=== PATIENT | female | born 1980 | race Caucasian/White ===

== ENCOUNTER 2019-03-23 21:22 | Inpatient (IN) | payer OTHER ==
[~2019-03-23] VITALS: Ht 162.6 cm; Wt 123.3 kg
--- NOTE | ~2019-03-23 | HC ---
[facility] [place] [address] CONSULTATION Name: IRASEMA POON Room #: 210-P [facility] IN M.R.#: [id number] Admission: 03/23/19 Attend Phys: Bernardo Poon MD Discharge: Date of : 76 Report #: [id number] THIS REPORT FOR: //name// CC: MICHELE physician/PCP Bernardo Poon DATE OF SERVICE: 03/24/2019 HISTORY OF PRESENT ILLNESS: This is a 38-year-old female patient for whom a consultation was called this morning to evaluate for headache. The patient gives a history that she has been diagnosed with headache a few years ago. She described it as a migraine headache. She gets about 1 headache every 6 weeks. She does have some photophobia with it. She does not know what brings it on. She was recently started on Topamax. She believes it was 2 weeks ago. Now, she is having severe headache, photophobia, vision disturbances. She is having some pain behind both eyes. She said these symptoms are different than she usually gets. She has some menstrual abnormality for which she takes hormones, but she thinks it is progesterone, but she is not certain. REVIEW OF SYSTEMS: Indicate history of hypertension, arthritis, posttraumatic stress disorder according to the patient. Rest of the review of system was mostly unremarkable. PAST MEDICAL HISTORY: Positive for migraine. FAMILY HISTORY: Negative for any early age stroke. SOCIAL HISTORY: The patient works as a dispatcher. PHYSICAL EXAMINATION: Indicates she is alert. She is responsive. She can follow simple and complex command. She is pretty photophobic. Cranial nerve examination is difficult to do. Neuromuscular examinations appear symmetrical. There is no meningeal sign. There is no carotid bruit. Cardiac and respiratory examinations appear unremarkable. Her blood pressure is 134/81, respirations 18, pulse is 75, temperature is 97.7. LABORATORY DATA: White count is normal. She did have a CT scan of the head and that does not appear to be showing any definite abnormality, but they have been questioning one area and because of that, we will do an MRI in this patient. IMPRESSION: This patient probably has status migrainous, but few things need to be addressed. Firstly, we need to evaluate a CT abnormality further by MRI. Even more importantly, we need to make sure she does not have any Topamax induced glaucoma. Since the character has changed, we will go ahead and do the MRI anyway. [address] [address] CONSULTATION Name: IRASEMA POON Room #: 210-P ADM IN M.R.#: [id number] Admission: 03/23/19 Attend Phys: Bernardo Poon MD Discharge: Date of : 76 Report #: [id number] I discussed the patient with admitting physician, Dr. Gilliland. I recommended Ophthalmology consult as soon as possible. He is going to arrange that with Ophthalmology clinic as soon as possible. I will go ahead and arrange an MRI. If glaucoma is excluded, the main treatment is going to be symptomatic by pain medication to break the cycle. I will hold her Topamax for the time being. It is noticed that she is also on gabapentin, which should have some beneficial effect for migraine headache. All of it was discussed with the patient and she is agreeable with this plan. By: [id number] Pedro Banuelos MD /nt
[2019-03-23 21:28] VITALS: BP 129/72
[2019-03-23] MEDS ORDERED: TOPAMAX 25 MG T25 MG PO (21:34)
[2019-03-23] MEDS ORDERED: FLEXERIL PO (21:34)
[2019-03-23] MEDS ORDERED: NEURONTIN300 MG PO (21:35)
[2019-03-23] MEDS ORDERED: ZYRTEC10 M4 PO (21:35)
[2019-03-23] MEDS ORDERED: HYDROCHLOROTHIA25 M2 PO (21:35)
[2019-03-23] MEDS ORDERED: LISINOPRIL PO (21:36)
[2019-03-23] MEDS ORDERED: PROPRANOLOL 8080 MG PO (21:37)
[2019-03-23] MEDS ORDERED: MELOXICAM15 MG PO (21:37)
[2019-03-23] MEDS ORDERED: PROVERA10 MG PO (21:37)
[2019-03-23] MEDS ORDERED: PROAIR HFA8.5 GM INH (21:38)
[2019-03-23] MEDS ORDERED: SUMATRIPTAN SUCCINAT PO (21:38)
[2019-03-23 23:26] VITALS: BP 133/94
[2019-03-24] VITALS (8 sets, daily range): BP systolic 113–143; BP diastolic 60–93
[2019-03-24 08:52] LABS: ALBUMIN 3.8 g/dL (3.4-5.0); CALCIUM 9.3 mg/dL (8.5-10.1); CREATININE 1.1 mg/dL (0.6-1.0); TOTAL BILIRUBIN 0.3 mg/dL (<0.1-1.0); TOTAL PROTEIN 7.3 g/dL (6.4-8.2)
[2019-03-24 09:11] LABS: HEMATOCRIT 41.4 % (37.0-47.0); HEMOGLOBIN 13.5 gm/dL (12.0-15.0); MCH 30.2 pg (26.0-34.0); MCHC 32.7 g/dL (28.0-37.0); MCV 92.4 fL (80.0-100.0); RBC 4.48 mil/uL (4.20-5.00); RDW 13.8 % (10.5-14.5); WBC 6.7 thou/uL (4.0-11.0)
[2019-03-24 09:23] LABS: URINE BILIRUBIN NEGATIVE (Negative); URINE BLOOD NEGATIVE (Negative); URINE CLARITY CLEAR; URINE COLOR YELLOW; URINE GLUCOSE-RANDOM* NEGATIVE (Negative); URINE KETONES NEGATIVE (Negative); URINE LEUKOCYTES-REFLEX TRACE (Negative); URINE NITRITE-REFLEX NEGATIVE (Negative); URINE PROTEIN (DIPSTICK) NEGATIVE (Negative); URINE UROBILINOGEN 0.2 E.U./dl (0.2-1.0)
[2019-03-25 02:31] LABS: GLYCOHEMOGLOBIN (HGB A1C) 5.8 % (4.8-5.6)
[2019-03-25 08:10] VITALS: BP 134/72
[2019-03-25 09:00] VITALS: BP 134/72
[2019-03-25 09:16] LABS: CHOLESTEROL 141 mg/dL (<200); HDL CHOLESTEROL 46 mg/dL (>40); LDL CHOLESTEROL 84 mg/dL (<100); TC:HDL 3.1 Ratio (Not establshd); TRIGLYCERIDE 59 mg/dL (<150); VLDL 12 mg/dL (<40)
--- NOTE | 2019-03-25 14:06 | 2DMMODE ---
[facility] [address] [place] [address] 2 D/M-MODE ECHOCARDIOGRAM Name: IRASEMA POON Room #: 455-P ADM IN M.R.#: [id number] Admission: 03/23/19 Attend Phys: Bernardo Poon MD Discharge: Date of : 76 Report #: [id number] THIS REPORT FOR: cc: MICHELE - Rocio family physician/PCP MICHELE - Rocio family physician/PCP Ez Peacock MD ~ THIS REPORT FOR: //name// APPROVED REPORT Study performed: 03/25/2019 13:28:02 EXAM: Comprehensive 2D, Doppler, and color-flow Echocardiogram Patient Location: Echo lab Room #: 455 Status: routine BSA: 2.23 HR: 74 bpm BP: 134/72 mmHg Rhythm: NSR Other Information Study Quality: Good Indications Migraine. Doctor requested bubble study. Hx: HTN. Echo Enhancing Agent Indication: Rule out Shunt Agent(s) / Amount(s) Used: Agitated Saline 6 cc 2D Dimensions RVDd: 31.36 mm IVSd: 8.56 (7-11mm) LVOT Diam: 19.62 (18-24mm) LVDd: 46.85 mm PWd: 9.77 (7-11mm) Ascending Ao: 26.96 (22-36mm) LVDs: 35.31 (25-40mm) Aortic Root: 27.40 mm Volumes Left Atrial Volume (Systole) Single Plane 4CH: 46.13 mL Single Plane 2CH: 48.17 mL LA ESV Index: 23.00 mL/m2 [facility] [address] [employer] [place] [address] 2 D/M-MODE ECHOCARDIOGRAM Name: IRASEMA POON Room #: 455-P [facility] IN .R.#: [id number] Admission: 03/23/19 Attend Phys: Bernardo Poon, Discharge: Date of : 76 Report #: [id number] Aortic Valve AoV Peak Naveen.: 1.44 m/s AO Peak Gr.: 8.35 mmHg LVOT Max P.04 mmHg LVOT Max V: 1.33 m/s PAULO Vmax: 2.78 cm2 Mitral Valve E/A Ratio: 1.6 MV Decel. Time: 167.28 ms MV E Max Naveen.: 1.09 m/s MV A Naveen.: 0.69 m/s MV PHT: 48.51 ms IVRT: 64.59 ms Pulmonary Valve PV Peak Naveen.: 1.02 m/s PV Peak Gr.: 4.15 mmHg Pulmonary Vein P Vein S: 0.74 m/s P Vein D: 0.39 m/s P Vein S/D Ratio: 1.90 Tricuspid Valve TR Peak Naveen.: 2.36 m/s RAP Estimate: 5.00 mmHg TR Peak Gr.: 22.25 mmHg PA Pressure: 27.00 mmHg Left Ventricle The left ventricle is normal size. There is normal LV segmental wall motion. There is normal left ventricular wall thickness. Left ventricular systolic function is normal. LVEF is 60%. The left ventricular diastolic function is normal. Right Ventricle The right ventricle is normal size. The right ventricular systolic function is normal. Atria The left atrium size is normal. No shunting by contrast bubble injection. The right atrium size is normal. Aortic Valve The aortic valve is normal in structure. No aortic regurgitation is present. There is no aortic valvular stenosis. [facility] [place] [address] 2 D/M-MODE ECHOCARDIOGRAM Name: IRASEMA POON Room #: 455-P [facility] IN M.R.#: [id number] Admission: 03/23/19 Attend Phys: Bernardo Poon, Discharge: Date of : 76 Report #: [id number] Mitral Valve The mitral valve is normal in structure. There is no mitral valve regurgitation noted. No evidence of mitral valve stenosis. Tricuspid Valve The tricuspid valve is normal in structure. Trace tricuspid regurgitation. Estimated PAP is 25-30mmHg. Pulmonic Valve The pulmonary valve is normal in structure. There is no pulmonic valvular regurgitation. <Conclusion> The left ventricle is normal size. There is normal left ventricular wall thickness. Left ventricular systolic function is normal. The right ventricle is normal size. The left atrium size is normal. No shunting by contrast bubble injection. The aortic valve is normal in structure. There is no mitral valve regurgitation noted. Trace tricuspid regurgitation. Estimated PAP is 25-30mmHg. <ELECTRONICALLY SIGNED> By: Ez Peacock MD 03/25/19 1405 140 140 Ez Peacock MD /INF
[2019-03-25 15:40] VITALS: BP 133/78
[2019-03-25 19:29] VITALS: BP 136/79
[2019-03-26 07:05] VITALS: BP 132/88
[2019-03-26] MEDS ORDERED: METOPROLOL SUCC25 M1 PO (10:31)
[2019-03-26 10:48] VITALS: BP 125/85
[2019-03-26 13:19] VITALS: BP 125/85
[2019-03-30 11:10] LABS: B.burgdorf.IgG Negative (()); B.burgdorf.IgM Negative (())
== END 2019-03-26 14:55 | disposition home or self-care (01) | DRG 103 ==
LOC: ER 21:22 → 2N 23:16 → EROBS 23:16 → 2N 03-24 00:21 → 4W 03-24 22:25
PROVIDERS: Hospitalist; Nurse Practitioner; Nurse Practitioner Family; ADMIT Internal Medicine
DX: G43.809 Other migraine, not intractable, without status migrainosus (principal); H40.60X0 Glaucoma secondary to drugs, unspecified eye, stage unspecified; I10 Essential (primary) hypertension; F43.10 Post-traumatic stress disorder, unspecified; E28.2 Polycystic ovarian syndrome; T42.6X5A Adverse effect of other antiepileptic and sedative-hypnotic drugs, initial encounter; M19.90 Unspecified osteoarthritis, unspecified site; Z79.899 Other long term (current) drug therapy; Z79.51 Long term (current) use of inhaled steroids; Z82.49 Family history of ischemic heart disease and other diseases of the circulatory system; Z83.3 Family history of diabetes mellitus; Z82.3 Family history of stroke; Z79.82 Long term (current) use of aspirin; Y92.89 Other specified places as the place of occurrence of the external cause; H53.8 Other visual disturbances
CPT/HCPCS: 10047